=== PATIENT | female | born 1960 | race Caucasian/White ===

== ENCOUNTER 2023-12-22 12:06 | Emergency (ER) | payer BC ==
[~2023-12-22] VITALS: Ht 152.4 cm; Wt 88.6 kg
[2023-12-22] MEDS ORDERED: NORCO 325 MG-51 TAB PO (14:33)
[2023-12-22 14:52] VITALS: BP 125/78; PULSE 83; TEMP 97.8
== END 2023-12-22 14:52 | disposition home or self-care (01) ==
LOC: COL.ER 12:06
DX: S09.90XA Unspecified injury of head, initial encounter (principal); S22.32XA Fracture of one rib, left side, initial encounter for closed fracture; Z87.891 Personal history of nicotine dependence; W18.30XA Fall on same level, unspecified, initial encounter; Y92.091 Bathroom in other non-institutional residence as the place of occurrence of the external cause
CPT/HCPCS: A9284